=== PATIENT | female | born 1975 | race African-American/Black ===

== ENCOUNTER 2016-12-22 00:29 | Inpatient (IN) | payer BC, OTHER ==
--- NOTE | ~2016-12-22 | PN ---
Unit #: [id number] #: [id number] Patient: ADELINA FAJARDO [id number] [facility] [address] [place] [address] [id number] I MR#: [id number] NAME: ADELINA FAJARDO. ROOM: P186 Age: 41 Sex: F Admission Date: 12/22/2016 : 1975 Attending Physician: Kathy Singleton M.D. Admitting Physician: Kathy Singleton M.D. Primary Care Physician: Primary Care Physician Tracee FOOTE PROGRESS NOTES DATE 12/24/2016 DISCUSSION Mr. Fajardo is a 41-year-old female who was seen today and chart was reviewed and case was discussed with the staff. She appears to be doing somewhat better and has been calmer and cooperative with treatment recommendations as she has been taking medications and tolerating them fairly well. MENTAL STATUS EXAMINATION Middle-aged female who was casually dressed with fair personal hygiene and appears to be in no acute distress or discomfort. She was awake and alert with impaired attention and concentration. Her mood was anxious with congruent affect. She denies any suicidal or homicidal ideations and also denies any auditory or visual hallucinations. Her insight and judgement remains slightly impaired. TREATMENT PLAN 1. Will continue on current medications and treatment protocol. Will monitor her response to the medications and make further adjustments as needed. 2. Will continue to follow up. Dictated by... Lilliam Paulino/matthew TD: 12/24/2016 17:21 JOB #: [id number] Unit #: [id number] #: [id number] Patient: ADELINA FAJARDO QAMAR PROGRESS NOTES Page 1 of 1 X Kathy Singleton MD PROGRESS NOTE
--- NOTE | ~2016-12-22 | PN ---
Unit #: [id number] #: [id number] Patient: ADELINA FAJARDO [id number] [facility] [address] [place] [address] [id number] MR#: [id number] NAME: ADELINA FAJARDO. ROOM: P186 Age: 41 Sex: F Admission Date: 12/22/2016 : 1975 Attending Physician: Kathy Singleton M.D. Admitting Physician: Kathy Singleton M.D. Primary Care Physician: Primary Care Physician Tracee CHARLTON NOTES DATE OF SERVICE 12/25/2016 DISCUSSION Ms. Fajardo is a 41-year-old female who was seen today. Chart was reviewed and case was discussed with the staff. She has been anxious, withdrawn, and rather seclusive to herself though has been cooperative with the treatment recommendations and has been taking the medications and tolerating them fairly well with no reported side effects. MENTAL STATUS EXAMINATION Middle-aged female who is casually dressed with fair personal hygiene, appears to be in no acute distress or discomfort. She was awake and alert with impaired attention and concentration. Her mood is anxious with congruent affect. She denies any suicidal or homicidal ideations. Her insight and judgment remain slightly impaired. TREATMENT PLAN 1. We will continue her on her current treatment protocol. We will monitor her response to the medications and make further adjustments as needed. 2. We will continue to follow up. Dictated by... Kathy Singleton M.D. IAA/bzg TD: 12/25/2016 10:09 JOB #: [id number] QAMAR PROGRESS NOTES Page 1 of 1 X Kathy Singleton MD PROGRESS NOTE
--- NOTE | ~2016-12-22 | HP ---
Unit #: [id number] #: [id number] Patient: ADELINA BURLESON [id number] [place] [address] [id number] MR#: [id number] NAME: ADELINA BURLESON. ROOM: P186 Age: 41 Sex: F Admission Date: 12/22/2016 : 1975 Attending Physician: Kathy Singleton M.D. Admitting Physician: Kathy Singleton M.D. Primary Care Physician: Primary Care Physician No HISTORY AND PHYSICAL HISTORY OF PRESENT ILLNESS Adelina is a 41 year old admitted to [facility] because of her abuse of alcohol. She is detoxing. PAST MEDICAL HISTORY 1. Long history of alcohol abuse. 2. High blood pressure. 3. Asthma. PAST SURGICAL HISTORY Nothing reported. ALLERGIES No known drug allergies. SOCIAL HISTORY Smokes on occasion. Drinks at least a fifth of liquor on a daily basis and denies illicit drug use. FAMILY HISTORY Medically noncontributory. REVIEW OF SYSTEMS CONSTITUTIONAL: No fever or chills. HEENT: Denies any sore throat, ear pain or runny nose. CARDIOVASCULAR: Denies chest pain, irregular heart rhythm or palpitations. CHEST: Denies shortness of breath or cough. No hemoptysis. GASTROINTESTINAL: Denies nausea, vomiting, diarrhea or chronic constipation. ENDOCRINE: Denies history of increased thirst or urination. No recent significant weight loss or gain. GENITOURINARY: Denies dysuria, frequency, or hematuria. SKIN: Denies any rashes. HEMATOLOGIC: Denies history of increased bleeding or bruising. MUSCULOSKELETAL: Denies any hot, swollen joints. No generalized muscle pain. NEUROLOGIC: Denies problems with vision or speech. No frequent, severe headaches. No numbness, tingling or weakness in any extremities. Denies loss of bladder or bowel control. CURRENT MEDICATIONS 1. Detox protocol. 2. Lexapro 10 mg daily. Unit #: [id number] #: [id number] Patient: ADELINA BURLESON 3. HCTZ 25 mg daily. 4. Proventil inhaler p.r.n. PHYSICAL EXAMINATION GENERAL: Alert, well-nourished, in no apparent distress. VITAL SIGNS: Blood pressure 118/82, heart rate 80, respirations 16, temperature 98.6. WEIGHT: 207. HEIGHT: 5 feet 5 inches. SKIN: Warm and dry without rash or lesion. HEENT: Normocephalic. TMs not viewed. Oral and nasal passages clear. Conjunctivae clear. PERRLA. EOMs intact. NECK: Supple without lymphadenopathy or thyromegaly. HEART: Regular rate and rhythm without murmur. LUNGS: Clear. ABDOMEN: Soft, nontender. : Not done. EXTREMITIES: No evidence of cyanosis, clubbing or edema. Moves all without focal deficit. NEUROLOGICAL: Grossly within normal limits. Cranial Nerves: II: Visual carmona are intact. III, IV AND : Extraocular movements are intact. Pupils are equal, round and reactive to light. V: Facial sensation is grossly normal. VII: Facial movements and expression are normal. VIII: Auditory acuity grossly intact. IX, X: Uvula is midline. Phonation is normal. XI: Patient shrugs shoulders and turns head normally. XII: Tongue protrudes in the midline. Sensory and Motor Function: Sensory and motor sensation is grossly normal. Motor: moves all extremities well. Coordination: Gait is normal. Deep Tendon Reflexes: Intact. IMPRESSION Psychiatric admission. RECOMMENDATIONS PSYCHIATRIC: Per psychiatrist. MEDICAL: See no contraindications to participate in facility's activities. MEDICAL PROGNOSIS Good. MEDICAL CONDITION Stable. Dictated by... Lynn Liu P.A.-C. for Lilliam Macias/matthew TD: 12/22/2016 19:18 JOB #: [id number] Unit #: [id number] #: [id number] Patient: ADELINA BURLESON HISTORY AND PHYSICAL Page 1 of 1 X Lynn Liu HISTORY AND PHYSICAL
--- NOTE | ~2016-12-22 | PN ---
Unit #: [id number] #: [id number] Patient: ADELINA FAJARDO [id number] [facility] [address] [place] [address] [id number] I MR#: [id number] NAME: ADELINA FAJARDO. ROOM: P186 Age: 41 Sex: F Admission Date: 12/22/2016 : 1975 Attending Physician: Kathy Singleton M.D. Admitting Physician: Kathy Singleton M.D. Primary Care Physician: Primary Care Physician Tracee CHARLTON NOTES DATE December 27, 2016 DISCUSSION Ms. Fajardo is a 41-year-old female, who was seen today and chart was reviewed and the case was discussed with the staff. The patient has been anxious, withdrawn, but has not shown any agitation, irritability and has been cooperative with the treatment recommendations, and she has been taking medications and tolerating them fairly well with no reported side effects. MENTAL STATUS EXAMINATION Middle-aged female, who was casually dressed with fair personal hygiene and appears to be in no acute distress or discomfort. The patient was awake and alert with impaired attention and concentration. Her mood is anxious with a congruent affect. The patient denies any suicidal or homicidal ideations. Her insight and judgment remain slightly impaired. TREATMENT PLAN 1. We will continue her on her current medications and treatment protocol, and will monitor her response to the medications, and make further adjustments as needed. 2. We will continue to followup. Dictated by... Lilliam Paulino/phyllis TD: 12/28/2016 09:15 JOB #: [id number] Unit #: [id number] #: [id number] Patient: ADELINA FAJARDO QAMAR PROGRESS NOTES Page 1 of 1 X Kathy Singleton MD PROGRESS NOTE
--- NOTE | ~2016-12-22 | DS ---
Unit #: [id number] #: [id number] [facility] [id number] [facility] [address] [place] [address] [id number] MR#: [id number] NAME: ADELINA FAJARDO. ROOM: 86 Age: 41 Sex: F Admission Date: 12/22/2016 : 1975 Discharge Date: Attending Physician: Kathy Singleton M.D. Primary Care Physician: Primary Care Physician No DISCHARGE SUMMARY IDENTIFYING DATA Ms. Fajardo is a 41-year-old single female, who is a resident of [place], [place], and was self-referred to the hospital on a voluntary basis. DISCHARGE DIAGNOSES Psychiatric: Major depressive disorder, recurrent, moderate, without psychotic features; alcohol dependence, moderate and acute withdrawals; benzodiazepine dependence, moderate. Medical: Hypertension and asthma. Stressors: Moderate psychosocial stressors. HISTORY OF PRESENT ILLNESS Please see initial psychiatric evaluation for details. PAST PSYCHIATRIC HISTORY Please see initial psychiatric evaluation for details. PAST MEDICAL HISTORY Please see initial psychiatric evaluation for details. HOSPITAL COURSE The patient was admitted to the adult chemical dependency and psychiatric unit at [facility] and was oriented to the hospital environment. Routine p.r.n. medications were initiated, and she was started back on her home medications and alcohol detox protocol was initiated and she was closely monitored. She was able to come out of the detox without any complications and expressed the desire to be enrolled into the Vivitrol monthly injection program and after ruling out hypersensitivity to the oral naltrexone, she was started on Vivitrol and the first injection was given while on the unit; followed by which, it was decided that she will be discharged home and will continue treatment on an outpatient basis. DISCHARGE MEDICATIONS Lexapro 10 mg a day for depression and Oretic 25 mg a day for hypertension. DISCHARGE CONDITION Stable. PROGNOSIS Fair. Dictated by... Unit #: [id number] #: [id number] Patient: ADELINA FAJARDO Kathy Singleton M.D. IAA/modl TD: 12/31/2016 06:35 JOB #: [id number] DISCHARGE SUMMARY Page 1 of 1 X Kathy Singleton MD DISCHARGE SUMMARY
--- NOTE | ~2016-12-22 | PN ---
Unit #: [id number] #: [id number] Patient: ADELINA FAJARDO [id number] [facility] [address] [place] [address] [id number] MR#: [id number] NAME: ADELINA FAJARDO. ROOM: P186 Age: 41 Sex: F Admission Date: 12/22/2016 : 1975 Attending Physician: Kathy Singleton M.D. Admitting Physician: Kathy Singleton M.D. Primary Care Physician: Primary Care Physician Tracee FOOTE PROGRESS NOTES DATE 12/28/2016 DISCUSSION Ms. Fajardo is a 41-year-old female who was seen today and chart was reviewed and case was discussed with the staff. She has been anxious, withdrawn though reports that she has been having and she would like to get started on Naltrexone with plan to move on to the Vivitrol injection. MENTAL STATUS EXAMINATION Middle-aged female who was casually dressed with fair personal hygiene, appears to be in no acute distress or discomfort. She was awake and alert on interaction with intact orientation. Her mood was anxious with congruent affect. She denies any suicidal or homicidal ideations. Her insight and judgement remains slightly impaired. TREATMENT PLAN 1. We will continue her on her current medications and treatment protocol. We will restart her naltrexone . 2. We will continue to follow up. Dictated by... Lilliam Paulino/sylvia TD: 12/29/2016 05:00 JOB #: [id number] Unit #: [id number] #: [id number] Patient: ADELINA FAJARDO QAMAR PROGRESS NOTES Page 1 of 1 X Kathy Singleton MD PROGRESS NOTE
--- NOTE | ~2016-12-22 | PN ---
Unit #: [id number] #: [id number] Patient: ADELINA FAJARDO [id number] [facility] [address] [place] [address] [id number] I MR#: [id number] NAME: ADELINA FAJARDO. ROOM: P186 Age: 41 Sex: F Admission Date: 12/22/2016 : 1975 Attending Physician: Kathy Singleton M.D. Admitting Physician: Kathy Singleton M.D. Primary Care Physician: Primary Care Physician Tracee FOOTE PROGRESS NOTES DATE 12/26/2016 DISCUSSION Ms. Fajardo is a 41-year-old female who was seen today and chart was reviewed and case was discussed with the staff. She reports doing fairly well and that she is interested intelligence he (1) program as she reports persistent craving. Meanwhile, she has been polite and pleasant, cooperative and compliant with treatment recommendations. MENTAL STATUS EXAMINATION Middle-aged female who was casually dressed with fair personal hygiene, appears to be in no acute distress or discomfort. She was awake and alert on interaction with intact orientation. Her mood was anxious with congruent affect. She denies any suicidal or homicidal ideations. Also, denies any auditory or visual hallucinations. Her insight and judgement remains slightly impaired. TREATMENT PLAN We will continue her on her current medications and treatment protocol. We will monitor her response and make further adjustments as needed. Dictated by... Lilliam Paulino/sylvia TD: 12/27/2016 04:34 JOB #: [id number] [facility] PROGRESS NOTES Page 1 of 1 X Kathy Singleton MD PROGRESS NOTE
--- NOTE | ~2016-12-22 | PN ---
Unit #: [id number] #: [id number] Patient: ADELINA FAJARDO [id number] [facility] [address] [place] [address] [id number] MR#: [id number] NAME: ADELINA FAJARDO. ROOM: P186 Age: 41 Sex: F Admission Date: 12/22/2016 : 1975 Attending Physician: Kathy Singleton M.D. Admitting Physician: Kathy Singleton M.D. Primary Care Physician: Primary Care Physician Tracee CHARLTON NOTES DATE December 30, 2016 DISCUSSION Ms. Fajardo is a 41-year-old female, who was seen today and chart was reviewed and the case was discussed with the staff. She has been anxious, withdrawn, but has not shown any agitation, irritability, or behavioral problems and has been cooperative with the treatment recommendations. She has been taking the medications and tolerating them fairly well with no reported side effects. MENTAL STATUS EXAMINATION Middle-aged female, who was casually dressed with fair personal hygiene and appears to be in no acute distress or discomfort. The patient was awake and alert with impaired attention and concentration. Her mood was anxious with a congruent affect. The patient denies any suicidal or homicidal ideations. Her insight and judgment remain slightly impaired. TREATMENT PLAN 1. We will continue her on her current medications and treatment protocol, and will monitor her response to the medications, and make further adjustments as needed. 2. We will continue to followup. Dictated by... Lilliam Paulino/phyllis TD: 12/30/2016 08:15 JOB #: [id number] Unit #: [id number] #: [id number] Patient: ADELINA FAJARDO QAMAR PROGRESS NOTES Page 1 of 1 X Kathy Singleton MD PROGRESS NOTE
--- NOTE | ~2016-12-22 | PA ---
Unit #: [id number] #: [id number] Patient: ADELINA FAJARDO [id number] [facility] [address] [place] [address] [id number] MR#: [id number] NAME: ADELINA FAJARDO. ROOM: P186 Age: 41 Sex: F Admission Date: 12/22/2016 : 1975 Date of Assessment: 12/22/2016 Attending Physician: Kathy Singleton M.D. Admitting Physician: Kathy Singleton M.D. Primary Care Physician: Primary Care Physician No PSYCHIATRIC ASSESSMENT DATE OF SERVICE 12/22/2016. IDENTIFYING DATA Ms. Fajardo is a 41-year-old single female, who is a resident of [facility] and was self-referred to the hospital as a transfer from [facility]. CHIEF COMPLAINT "I've been feeling overwhelmed and I cannot take life anymore." HISTORY OF PRESENT ILLNESS Ms. Fajardo is a 41-year-old female, who was transferred to us from [facility], where she presented reportedly feeling overwhelmed and stressed out and having suicidal ideation. She reports that she has been shut in the hospital last week lying in the bed in the dark and reports and she has too much in her plate and reports that she has been having thoughts of suicide and reports that she has no plans, but feels like she would be better off not being alive and reports that she is drinking a fifth of alcohol on daily basis and there is no particular reports that she has been drinking daily for the past month and reports that she last drank last night, however, her blood alcohol level was zero upon presentation to the hospital, though she did score 11 on her CIWA as part of her alcohol withdrawal syndrome. She reports that she is working, but has not been in the 2 last weeks and then she was put on benzodiazepines from her doctor t.i.d. and reports that she cannot work while taking those pills and reports that she cannot function and at the same time, she has been mixing those pills with her alcohol and as such has been unable to perform activities of daily living including her personal hygiene and self-care. Reports that she is drinking and taking the pills and sleeping all the time and was seen to be getting to self and others and as such, recommendation for inpatient level of care for safety and stabilization was made and the patient was transferred to us. SUBSTANCE ABUSE HISTORY The patient reports history of alcohol dependence, reports that she has been drinking a fifth of alcohol a day and has been taking her prescription benzodiazepines t.i.d. which has been prescribed to her by Dr. Alexander through [facility] in [facility], and I am not sure if she has been open with the prescriber about her excessive alcohol consumption and mixing those pills with alcohol leading to inability to function. Unit #: [id number] #: [id number] Patient: ADELINA FAJARDO PAST PSYCHIATRIC HISTORY The patient has had history of inpatient psychiatric hospitalization at [facility] and has been diagnosed and treated for mood disorder and is currently not seeing a psychiatrist, and review of the medical records indicate that she is not taking any psychotropic medications. PAST MEDICAL HISTORY The patient's medical history is significant for hypertension and asthma. ALLERGIES No known medication allergies. CURRENT MEDICATIONS Atarax, hydrochlorothiazide, and ProAir. PERSONAL AND SOCIAL HISTORY A 41-year-old female, who reports that she is single, employed, and lives by herself and has poor social support system. MENTAL STATUS EXAMINATION Young female, who was casually dressed with fair personal hygiene, appears to be in no acute distress or discomfort. She was awake and alert on interaction with intact orientation to time, place, and person. Her mood was anxious and depressed with a congruent affect. Her speech was slow and restricted in content. Her thought processes were disorganized with looseness of associations and suicidal ideations. Her insight and judgment remain significantly impaired. DIAGNOSTIC IMPRESSION Psychiatric: Major depressive disorder, recurrent, moderate, without psychotic features; alcohol dependence, moderate in acute withdrawals; benzodiazepine dependence, moderate. Medical: None. Stressors: Moderate psychosocial stressors. TREATMENT PLAN 1. The patient has presented with history of mood disorder and has been decompensating and will need inpatient hospitalization for safety and stabilization. We will start her back on her home medications. We will adjust the medications and monitor response. 2. Supportive therapy was provided to the patient. 3. Safe, structured, and nourishing environment will be provided. ESTIMATED LENGTH OF STAY 5 to 7 days. ABILITY TO HELP SELF Limited. WILLINGNESS TO HELP SELF The patient appears to be willing to help self. STRENGTHS 1. Communicative. 2. Cooperative. PROBLEMS 1. Chronic dysphoric symptoms. Unit #: [id number] #: [id number] Patient: ADELINA FAJARDO 2. Poor social support system. DISCHARGE CRITERIA This will be contingent upon the patient's ability to go through detox without having any significant withdrawal symptoms and her ability to stay safe to herself, particularly after discharge from the hospital. Dictated by... Lilliam Paulino/kirt TD: 12/22/2016 07:25 JOB #: [id number] PSYCHIATRIC ASSESSMENT Page 1 of 1 X Kathy Singleton MD X PSYCHIATRIC ASSESSMENT
--- NOTE | ~2016-12-22 | PN ---
Unit #: [id number] #: [id number] Patient: ADELINA FAJARDO [id number] [facility] [address] [place] [address] [id number] I MR#: [id number] NAME: ADELINA FAJARDO. ROOM: P186 Age: 41 Sex: F Admission Date: 12/22/2016 : 1975 Attending Physician: Kathy Singleton M.D. Admitting Physician: Kathy Singleton M.D. Primary Care Physician: Primary Care Physician Tracee CHARLTON NOTES DATE OF SERVICE: 12/29/2016 SUBJECTIVE Ms. Fajardo is a 41-year-old female, who was seen today and chart was reviewed and the case was discussed with the staff. She has been anxious, withdrawn, and rather seclusive to herself. Meanwhile, she has been cooperative with the treatment recommendations and has been taking the medications and tolerating them fairly well with no reported side effects. MENTAL STATUS EXAMINATION Middle-aged female, who was casually dressed with fair personal hygiene, appears to be in no acute distress or discomfort. She was awake and alert on interaction with intact orientation. Her mood was anxious and depressed with a congruent affect. She denies any suicidal or homicidal ideations and also denies any auditory or visual hallucinations. Her insight and judgment remain slightly impaired. TREATMENT PLAN 1. We will continue her on her current medications and treatment protocol. We will monitor her response to the medications and make further adjustments as needed. 2. We will continue to follow up. Dictated by... Lilliam Paulino/kirt TD: 12/29/2016 13:46 JOB #: [id number] Unit #: [id number] #: [id number] Patient: ADELINA FAJARDO QAMAR PROGRESS NOTES Page 1 of 1 X Kathy Singleton MD PROGRESS NOTE
--- NOTE | ~2016-12-22 | PN ---
Unit #: [id number] #: [id number] Patient: ADELINA FAJARDO [id number] [facility] [address] [place] [address] [id number] MR#: [id number] NAME: ADELINA FAJARDO. ROOM: P186 Age: 41 Sex: F Admission Date: 12/22/2016 : 1975 Attending Physician: Kathy Singleton M.D. Admitting Physician: Kathy Singleton M.D. Primary Care Physician: Primary Care Physician Tracee CHARLTON NOTES DATE December 23, 2016 DISCUSSION Ms. Fajardo is a 41-year-old female, who was seen today and chart was reviewed and the case was discussed with the staff. The patient has been anxious, withdrawn, and rather seclusive to herself. Meanwhile, she has been cooperative with the treatment recommendations and she has been taking the medications and tolerating them fairly well with no reported side effects. MENTAL STATUS EXAMINATION Middle-aged female, who was casually dressed with fair personal hygiene and appears to be in no acute distress or discomfort. The patient was awake and alert with impaired attention and concentration. Her mood was anxious with a congruent affect. She denies any suicidal or homicidal ideations, and also denies any auditory or visual hallucinations. Her insight and judgment remain slightly impaired. TREATMENT PLAN 1. We will continue her on her current medications and treatment protocol, and will monitor her response to the medications, and make further adjustments as needed. 2. We will continue to followup. Dictated by... Lilliam Paulino/phyllis TD: 12/23/2016 10:57 JOB #: [id number] Unit #: [id number] #: [id number] Patient: ADELINA FAJARDO QAMAR PROGRESS NOTES Page 1 of 1 X Kathy Singleton MD PROGRESS NOTE
[~2016-12-22 00:29] MED LIST: KETOPROFEN PO
[2016-12-22 12:39] LABS: BASOPHIL% 0.8 % (0-2.5); EOSINOPHIL# 0.2 X10e3 (0-0.7); EOSINOPHIL% 3.6 % (0.0-7.0); HEMATOCRIT 39.4 % (35.0-45.0); HEMOGLOBIN 13.1 gm/dL (12.0-16.0); LYMPHOCYTE% 33.4 % (17.0-45.0); MEAN CELL VOLUME 94.8 FL (83-96); MEAN CORPUSCULAR HEMOGLOBIN 31.5 PG (28-34); MEAN CORPUSCULAR HGB CONC 33.2 g/dL (30-36); MEAN PLATELET VOLUME 7.6 FL (6.5-11.5); MONOCYTE# 0.7 X10e3 (0-1.0); MONOCYTE% 11.9 % (3.0-12.0); NEUTROPHIL% 50.3 % (40-75); PLATELET COUNT 290 X10e3 (140-420); RED BLOOD COUNT 4.16 X10e (3.90-5.30); RED CELL DISTRIBUTION WIDTH 12.8 % (11.0-15.5); WHITE BLOOD COUNT 5.9 X10e3 (4.0-10.5)
[2016-12-22 12:44] LABS: DIFF IND NO
[2016-12-22 13:30] LABS: THYROID STIMULATING HORMONE 0.9 uIU/ml (0.34-5.60)
[2016-12-22 13:36] LABS: FREE THYROXIN (T4) 0.87 ng/dL (0.58-1.64)
[2016-12-23 09:48] LABS: ALBUMIN SERUM 3.9 g/dL (3.5-5.0); BILIRUBIN,TOTAL 1.2 mg/dL (0.2-2.0); BUN/CREATININE RATIO 26.66; CALCIUM SERUM 9.3 mg/dL (8.4-10.2); CREATININE SERUM 0.6 mg/dL (0.6-1.4); GLOM FILT RATE Estimated 131.2 mL/min (>60); POTASSIUM 4.2 mmol/L (3.5-5.1); PROTEIN TOTAL SERUM 7.2 g/dL (6.0-8.3)
[2016-12-24 09:36] LABS: URINE BILIRUBIN NEG (NEG); URINE BLOOD NEG (NEG); URINE COLOR DK YELLOW; URINE GLUCOSE NEG (NEG); URINE KETONE NEG (NEG); URINE LEUKOCYTE ESTERASE NEG (NEG); URINE NITRATE NEG (NEG); URINE PROTEIN NEG (NEG); URINE SPECIFIC GRAVITY 1.017 (1.003-1.035); URINE UROBILINOGEN 0.2 MG/DL (NEG)
[2016-12-24 09:41] LABS: URINE APPEARANCE SL CLOUDY
[2016-12-24 10:55] LABS: AMPHETAMINE NEG (NEG); BARBITURATES NEG (NEG); BENZODIAZEPINES POS (NEG); COCAINE NEG (NEG); MARIJUANA NEG (NEG); OPIATES NEG (NEG); TRICYCLIC ANTIDEPRESSANTS NEG (NEG); U METHADONE NEG (NEG)
== END 2016-12-31 09:55 | DRG 885 ==
LOC: P1E 00:29
PROVIDERS: Psychiatry & Neurology Psychiatry
PROC: HZ2ZZZZ Detoxification Services for Substance Abuse Treatment (ICD-10-PCS; principal; 2016-12-22)
DX: F33.1 Major depressive disorder, recurrent, moderate (principal); F13.20 Sedative, hypnotic or anxiolytic dependence, uncomplicated; I10 Essential (primary) hypertension; F10.239 Alcohol dependence with withdrawal, unspecified; J45.909 Unspecified asthma, uncomplicated; Z72.0 Tobacco use
CPT/HCPCS: 80053; 80307; 81003; 84439; 84443; 84703; 85025; 86592